=== PATIENT | male | born 1960 | race Caucasian/White ===

== ENCOUNTER 2019-04-01 05:01 | Inpatient (IN) | payer BC ==
[2019-04-01] MEDS ORDERED: hydrALAzine 20 MG INJ IV (05:30)
[2019-04-01] MEDS ORDERED: morphine 2 MG INJ IV (05:30)
[2019-04-01] MEDS ORDERED: NACL 0.9% 3 ML SYG IV (05:30)
[2019-04-01] MEDS ORDERED: BISACODYL (EC) 5 MG TAB PO (05:30)
[2019-04-01] MEDS ORDERED: ONDANSETRON 4 MG INJ IV (05:30)
[2019-04-01] MEDS ORDERED: NITROGLYCERIN (SL) 0.4 MG TAB SL (05:30)
[2019-04-01] MEDS ORDERED: DOCUSATE SODIUM 100 MG CAP PO (05:30)
[2019-04-01 05:58] LABS: ADD MAN DIFF? NO
[2019-04-01 06:00] LABS: BASOPHIL # 0.1 10^3/ul (0.0-0.1); EOSINOPHILS # 0.7 10^3/ul (0.0-0.5); EOSINOPHILS % 8.8 % (0.0-7.0); HEMATOCRIT 44.7 % (42.0-52.0); HEMOGLOBIN 15.3 g/dl (14.0-18.0); LYMPHOCYTES # 2.5 10^3/ul (0.8-2.9); LYMPHOCYTES % 32.1 % (15.0-51.0); MEAN CORPUSCULAR HEMOGLOBIN 29.9 pg (29.0-33.0); MEAN CORPUSCULAR HGB CONC 34.2 g/dl (32.0-37.0); MEAN CORPUSCULAR VOLUME 87.5 fl (82.0-101.0); MEAN PLATELET VOLUME 8.9 fl (7.4-10.4); MONOCYTE # 0.8 10^3/ul (0.3-0.9); MONOCYTES % 10.1 % (0.0-11.0); NEUTROPHIL # 3.7 10^3/ul (1.6-7.5); NEUTROPHILS % 47.4 % (39.0-77.0); PLATELET COUNT 324 10^3/UL (140-415); RED BLOOD COUNT 5.11 10^6/ul (4.70-6.10); RED CELL DISTRIBUTION WIDTH 12.4 % (11.5-14.5)
[2019-04-01 06:00] LABS: WHITE BLOOD COUNT 7.8 10^3/ul (4.8-10.8)
[2019-04-01 06:36] LABS: ALANINE AMINOTRANSFERASE 56 IU/L (13-69); ALBUMIN 4.4 g/dl (3.3-4.9); ALBUMIN/GLOBULIN RATIO 1.41; ALKALINE PHOSPHATASE 69 IU/L (42-121); ANION GAP 9 (5-13); ASPARTATE AMINO TRANSFERASE 39 IU/L (15-46); BILIRUBIN,INDIRECT 0.6 mg/dl (0-1.1); BILIRUBIN,TOTAL 0.6 mg/dl (0.2-1.3); BLOOD UREA NITROGEN 11 mg/dl (7-20); CALCIUM 9.7 mg/dl (8.4-10.2); CARBON DIOXIDE 28 mmol/L (21-31); CHLORIDE 98 mmol/L (97-110); CHOL/HDL RATIO 6.3 RATIO; CHOLESTEROL 260 mg/dl (100-200); CREATININE 0.91 mg/dl (0.61-1.24); Estimated GFR > 60 mL/min (>60); GLUCOSE 102 mg/dl (70-220); HDL CHOLESTEROL 41 mg/dl (28-71); LDL CHOLESTEROL,CALCULATED 193 mg/dl; POTASSIUM 4.8 mmol/L (3.5-5.1); SODIUM 135 mmol/L (135-144); TOTAL PROTEIN 7.5 g/dl (6.1-8.1); TRIGLYCERIDES 132 mg/dl (0-149)
[2019-04-01 07:08] LABS: HEMOGLOBIN A1C 6.1 % (0-5.9)
[2019-04-01] MEDS: AMLODIPINE 10 MG TAB PO (09:13)
[2019-04-01] MEDS: BENAZEPRIL 40 MG TAB PO (09:13)
[2019-04-01] MEDS: ACETAMINOPHEN 325 MG TAB PO (09:16)
[2019-04-01] MEDS ORDERED: METOPROLOL 50 MG TAB PO (16:00)
[2019-04-01] MEDS: ASPIRIN 81 MG TAB PO (16:46)
[2019-04-01 16:48] LABS: TROPONIN-I < 0.012 ng/ml (0.000-0.120)
[2019-04-01] MEDS ORDERED: GLUCOSE GEL 15 GRAM TUBE PO ×2 (19:00)
[2019-04-01] MEDS ORDERED: GLUCOSE GEL 15 GRAM TUBE BUCCAL (19:00)
[2019-04-01] MEDS ORDERED: GLUCAGON 1 MG INJ IM (19:00)
[2019-04-01] MEDS ORDERED: DEXTROSE 50% 50 ML SYRINGE IV ×2 (19:00)
[2019-04-01] MEDS: INSULIN ASPART [NOVOLOG] 3 ML PEN SC (20:20)
[2019-04-01 22:42] LABS: CREATINE KINASE 92 IU/L (23-200)
[2019-04-01 22:55] LABS: CK INDEX 0.6; CK-MB 0.51 ng/ml (0.0-2.4); TROPONIN-I < 0.012 ng/ml (0.000-0.120)
[2019-04-02 05:42] LABS: ADD MAN DIFF? NO
[2019-04-02 05:47] LABS: BASOPHIL # 0.1 10^3/ul (0.0-0.1); BASOPHILS % 1.1 % (0.0-2.0); EOSINOPHILS # 0.8 10^3/ul (0.0-0.5); HEMATOCRIT 45.1 % (42.0-52.0); HEMOGLOBIN 15.9 g/dl (14.0-18.0); LYMPHOCYTES # 2.6 10^3/ul (0.8-2.9); LYMPHOCYTES % 30.9 % (15.0-51.0); MEAN CORPUSCULAR HEMOGLOBIN 30.8 pg (29.0-33.0); MEAN CORPUSCULAR HGB CONC 35.3 g/dl (32.0-37.0); MEAN CORPUSCULAR VOLUME 87.4 fl (82.0-101.0); MEAN PLATELET VOLUME 8.9 fl (7.4-10.4); MONOCYTE # 0.7 10^3/ul (0.3-0.9); MONOCYTES % 8.8 % (0.0-11.0); NEUTROPHIL # 4.1 10^3/ul (1.6-7.5); NEUTROPHILS % 48.6 % (39.0-77.0); PLATELET COUNT 332 10^3/UL (140-415); RED BLOOD COUNT 5.16 10^6/ul (4.70-6.10); RED CELL DISTRIBUTION WIDTH 12.7 % (11.5-14.5)
[2019-04-02 05:47] LABS: WHITE BLOOD COUNT 8.3 10^3/ul (4.8-10.8)
[2019-04-02 06:18] LABS: ANION GAP 9 (5-13); BLOOD UREA NITROGEN 12 mg/dl (7-20); CALCIUM 9.8 mg/dl (8.4-10.2); CARBON DIOXIDE 27 mmol/L (21-31); CHLORIDE 100 mmol/L (97-110); CREATININE 0.94 mg/dl (0.61-1.24); Estimated GFR > 60 mL/min (>60); GLUCOSE 100 mg/dl (70-220); POTASSIUM 4.9 mmol/L (3.5-5.1); SODIUM 136 mmol/L (135-144)
[2019-04-02] MEDS: INSULIN ASPART [NOVOLOG] 3 ML PEN SC ×3 (07:56→18:00)
[2019-04-02] MEDS: ATORVASTATIN 40 MG TAB PO (08:38)
[2019-04-02] MEDS: ASPIRIN 81 MG TAB PO (08:39)
[2019-04-02] MEDS: AMLODIPINE 10 MG TAB PO (08:39)
[2019-04-02] MEDS: BENAZEPRIL 40 MG TAB PO (08:39)
[2019-04-02] MEDS: METOPROLOL 50 MG TAB PO (13:29)
[2019-04-02] MEDS: ALPRAZOLAM 0.5 MG TAB PO (14:27)
[2019-04-02] MEDS: ALPRAZOLAM 0.25 MG TAB PO (14:28)
[2019-04-02] MEDS: METOPROLOL 100 MG TAB PO (14:49)
[2019-04-02] MEDS ORDERED: IOHEXOL 100 ML ×2 (15:47)
[2019-04-02] MEDS ORDERED: SOD CHLORIDE 0.9% 100 ML ×2 (15:47)
[2019-04-02] MEDS: NITROGLYCERIN AEROSOL (4.9 GM) (16:32)
[2019-04-02] MEDS: NITROGLYCERIN AEROSOL (4.9 GM) SL (17:05)
== END 2019-04-02 20:05 | disposition home or self-care (01) | DRG 313 ==
LOC: E/R 05:01 → 6WM 05:04
DX: R07.89 Other chest pain (principal); I10 Essential (primary) hypertension; E78.5 Hyperlipidemia, unspecified; Z79.82 Long term (current) use of aspirin
CPT/HCPCS: 75574; 80048; 80053; 80061; 82550; 82553; 82962; 83036; 83735; 84443; 84484; 85025; 93005; 93306